=== PATIENT | female | born 1960 | race Caucasian/White ===

== ENCOUNTER 2023-01-23 18:03 | Outpatient (CLI) | payer BC, SELFPAY | END 2023-01-23 18:04 | disposition home or self-care (01) | LOC: LKVREF 18:04 | PROVIDERS: PCP Emergency Medicine; Visit Provider Emergency Medicine | DX: Z00.00 Encounter for general adult medical examination without abnormal findings (principal); I10 Essential (primary) hypertension | CPT/HCPCS: 80048 ==

== ENCOUNTER 2024-01-22 19:20 | Outpatient (CLI) | payer BC, SELFPAY | END 2024-01-22 19:21 | disposition home or self-care (01) | LOC: NFLDREF 01-26 18:55 | PROVIDERS: PCP Emergency Medicine; Referring Provider Emergency Medicine; Visit Provider Emergency Medicine | DX: I10 Essential (primary) hypertension (principal); Z13.220 Encounter for screening for lipoid disorders | CPT/HCPCS: 80048; 80061 ==

== ENCOUNTER 2024-04-07 13:36 | Outpatient (CLI) | payer BC, SELFPAY ==
--- NOTE | 2024-04-07 14:00 | CRLHL7_ITS ---
For Patients: As a result of the Century Cures Act, medical imaging exams and procedure reports are released immediately into your electronic medical record. You may view this report before your referring provider. If you have questions, please contact your health care provider. BILATERAL SCREENING MAMMOGRAM WITH COMPUTER-AIDED DETECTION AND TOMOSYNTHESIS TECHNIQUE: CC and MLO views were obtained. These mammographic images have been obtained using full-field digital technique. These mammographic images were interpreted with the benefit of computer-aided detection. Breast Tomosynthesis was used in this interpretation. COMPARISON FILM: 05/11/20, 04/23/18. FINDINGS: There are scattered areas of fibroglandular density IMPRESSION: There is no radiographic evidence for malignancy. ASSESSMENT: BI-RADS Category 2: Benign RECOMMENDATION: Routine screening mammogram in 1 year. A lay language report of this examination will be provided to the patient. Javi Doan M.D. Diagnostic Radiologist [email or web address] Transcribed: 3:27 [email or web address] nino/Dictated by: Javi Doan MD @ 04/09/2024 11:28:00 AM (Electronically Signed)
== END 2024-04-07 13:37 | disposition home or self-care (01) ==
LOC: MAMMO 13:37
PROVIDERS: PCP Emergency Medicine; Visit Provider Emergency Medicine
DX: Z12.31 Encounter for screening mammogram for malignant neoplasm of breast (principal)
CPT/HCPCS: 77063; 77067

== ENCOUNTER 2024-04-15 16:52 | Outpatient (CLI) | payer BC, SELFPAY | END 2024-04-15 16:53 | disposition home or self-care (01) | LOC: NFLDREF 04-17 04:04 | PROVIDERS: PCP Emergency Medicine; Referring Provider Emergency Medicine; Visit Provider Physician Assistant | DX: N39.0 Urinary tract infection, site not specified (principal) | CPT/HCPCS: 87086 ==

== ENCOUNTER 2025-04-20 13:28 | Outpatient (CLI) | payer BC, SELFPAY ==
[2025-04-20 23:25] LABS: GC DNA Amplified* NOT DETECTED (No Detected)
[2025-04-20 23:28] LABS: Chlamydia DNA Amplified* DETECTED (No Detected)
[2025-04-23 09:47] LABS: HPV Source Cervix
[2025-04-29 17:19] LABS: Pap Test Digital Imaging Done; Pap Test Reviewed by Pathologi Done
== END 2025-04-20 13:29 | disposition home or self-care (01) ==
PROVIDERS: PCP Physician Assistant Medical; Visit Provider Physician Assistant Medical
DX: Z00.00 Encounter for general adult medical examination without abnormal findings (principal)
CPT/HCPCS: 80053; 80061; 84443; 87491; 87591; 87624; 87625; 88141; 88142; 88175

== ENCOUNTER 2025-06-03 13:57 | Outpatient (CLI) | payer BC, SELFPAY ==
[2025-06-03 14:29] LABS: Blood Urea Nitrogen POC* 15 mg/dl (8-26); Carbon Dioxide Point of Care* 23 mmol/L (20-32); Chloride Point of Care* 103 mmol/L (98-109); Potassium Point of Care* 3.9 mmol/L (3.5-4.9); Sodium Point of Care* 140 mmol/L (138-146)
[2025-06-03 14:30] LABS: Creatinine Point of Care* 0.8 mg/dl (0.6-1.3); Glucose IStat Point of Care 87 mg/dl (60-115); Ionized Calcium Point of Care* 1.18 mmol/L (1.11-1.33)
[2025-06-03 22:04] LABS: Vitamin D 25 Hydroxy* 23 ng/mL (30-80)
[2025-06-03 22:49] LABS: Vitamin B12* 310 pg/mL (243-894)
[2025-06-03 23:02] LABS: Chlamydia DNA Amplified* NOT DETECTED (No Detected); GC DNA Amplified* NOT DETECTED (No Detected)
== END 2025-06-03 13:58 | disposition home or self-care (01) ==
PROVIDERS: PCP Physician Assistant Medical; Visit Provider Physician Assistant Medical
DX: I10 Essential (primary) hypertension (principal); R53.83 Other fatigue
CPT/HCPCS: 82306; 82607; 87491; 87591

== ENCOUNTER 2025-06-29 11:16 | Outpatient (CLI) | payer BC, SELFPAY ==
--- NOTE | 2025-06-29 11:30 | CRLHL7_ITS ---
For Patients: As a result of the Century Cures Act, medical imaging exams and procedure reports are released immediately into your electronic medical record. You may view this report before your referring provider. If you have questions, please contact your health care provider. INDICATION: BILATERAL SCREENING MAMMOGRAM, ASYMPTOMATIC 64 Y/O FEMALE COMPARISON: 04/07/2024, 05/11/2020, 04/23/2018 TECHNIQUE: Digital mammogram in CC and MLO projections including computer-aided detection (CAD) and tomosynthesis. BREAST COMPOSITION: There are scattered areas of fibroglandular density. FINDINGS: No suspicious findings. ASSESSMENT: BI-RADS 1 Negative RECOMMENDATION: Annual screening mammogram. A lay language report of this examination will be provided to the patient. Dictated by: Javi Doan MD @ 06/29/2025 12:04:59 (Electronically Signed)
== END 2025-06-29 11:17 | disposition home or self-care (01) ==
LOC: MAMMO 11:16
PROVIDERS: PCP Physician Assistant Medical; Visit Provider Physician Assistant Medical
DX: Z12.31 Encounter for screening mammogram for malignant neoplasm of breast (principal)
CPT/HCPCS: 77063; 77067